=== PATIENT | female | born 1955 | race Caucasian/White ===

== ENCOUNTER → 2023-11-28 11:59 | Outpatient (REF) | payer MEDICARE, OTHER, SELFPAY | LOC: RAD 11:59 | PROVIDERS: ATTENDING PHYSICIAN Specialist; FAMILY PHYSICIAN Nurse Practitioner Family | DX: N20.0 Calculus of kidney (principal) | CPT/HCPCS: 74018 ==

== ENCOUNTER → 2024-01-02 07:16 | Outpatient (REF) | payer MEDICARE, OTHER, SELFPAY ==
[2024-01-02 10:58] LABS: Hematocrit 41.7 % (37.0-47.0); Hemoglobin 14.1 g/dL (12.0-16.0); Mean Corp Hgb Conc. 33.8 g/dL (33.0-37.0); Mean Corpuscular Hgb 28.9 pg (27.0-31.0); Mean Corpuscular Volume 85.5 fL (81.0-99.0); Mean Platelet Volume 10.7 fL (7.4-10.4); Platelet Count 244 10^3/uL (130-400); Red Blood Cell Count 4.88 10^6/uL (4.20-5.40); Red Cell Dist. Width 12.6 % (11.5-14.5)
[2024-01-02 11:32] LABS: Blood Urea Nitrogen 22 mg/dl (7-17); Calcium 10.1 mg/dl (8.4-10.2); Carbon Dioxide 28 mmol/L (22-30); Chloride 99 mmol/L (98-107); Glucose 77 mg/dl (70-99); Potassium 4.4 mmol/L (3.5-5.1); Sodium 140 mmol/L (135-145); eGFR > 60.00
== END ==
LOC: SDSPAT 07:16
PROVIDERS: ATTENDING PHYSICIAN Specialist; FAMILY PHYSICIAN Nurse Practitioner Family
DX: Z01.818 Encounter for other preprocedural examination (principal)
CPT/HCPCS: 80048; 85027; 93005

== ENCOUNTER 2024-01-08 06:37 | Day surgery (SDC) | payer MEDICARE, OTHER, SELFPAY ==
[2024-01-02 08:44] VITALS: BMI 29.8
[2024-01-08] VITALS (10 sets, daily range): BP systolic 117–132; BP diastolic 57–76; BMI 29.8
[2024-01-08 08:44] LABS: Glucose - Point of Care 90 mg/dl (70-99)
[2024-01-08 11:00] LABS: Glucose - Point of Care 82 mg/dl (70-99)
[2024-01-08 11:58] LABS: Glucose - Point of Care 83 mg/dl (70-99)
[2024-01-08] MEDS: Pyridium 200 MG PO (12:31)
== END 2024-01-08 13:53 | disposition home or self-care (01) ==
LOC: SDS 06:37
PROVIDERS: ATTENDING PHYSICIAN Specialist; FAMILY PHYSICIAN Nurse Practitioner Family
DX: N20.0 Calculus of kidney (principal)
CPT/HCPCS: 52356; 74018; 76000; 82962; C1894; C2617

== ENCOUNTER → 2024-07-21 09:25 | Outpatient (REF) | payer MEDICARE, OTHER, SELFPAY | LOC: RAD 09:25 | PROVIDERS: ATTENDING PHYSICIAN Specialist; FAMILY PHYSICIAN Nurse Practitioner Family | DX: N20.0 Calculus of kidney (principal) | CPT/HCPCS: 74018 ==

== ENCOUNTER → 2025-01-27 11:29 | Outpatient (REF) | payer MEDICARE, OTHER, SELFPAY | LOC: RAD 11:29 | PROVIDERS: ATTENDING PHYSICIAN Specialist; FAMILY PHYSICIAN Nurse Practitioner Family | DX: N20.0 Calculus of kidney (principal) | CPT/HCPCS: 74018 ==